=== PATIENT | female | born 1965 | race Caucasian/White ===

== ENCOUNTER 2018-06-11 22:34 | Inpatient (IN) | payer OTHER ==
[~2018-06-11] VITALS: Ht 170.2 cm; Wt 71.7 kg
[2018-06-11] MEDS ORDERED: IV RINGERS SOLUTION,LACTATED 1,000 ML IV SCH (22:40)
--- NOTE | 2018-06-11 22:40 | ED.ADGEN ---
Past History Past Medical History: UTI, Other Past Surgical History: Other Adult General Chief Complaint Chief Complaint ".. I got this really severe pain up here... where I used to get gallbladder pain.. here in this Rt. flank.. and abd.. it was so severe.. I got dizzy...".. " I know it is not my gall bladder since I got it out..." HPI HPI Patient is a 53 year old female who presents with above hx and complaints severe Rt. upper flank and abd. pain. Pt. denies any intake of bad food, travel , trauma or specific ill contacts. Patient has had previous cholecystectomy. Patient denies any problems with defecation or urination. No discoloration stools. No history of prior kidney stones. Patient rates pain as 10 out of 10 at its peak point. Nothing she could do to relieve the pain. Pt. normally follows at [facility] [facility]. Review of Systems Review of Systems Constitutional: Denies fever or chills [] Eyes: Denies change in visual acuity, redness, or eye pain [] HENT: Denies nasal congestion or sore throat [] Respiratory: Denies cough or shortness of breath [] Cardiovascular: No additional information not addressed in HPI [] GI: Complaints of right flank and abdominal pain, nausea,. Denies vomiting, bloody stools or diarrhea [] : Denies dysuria or hematuria [] Musculoskeletal: Right flank back pain. Denies joint pain [] Integument: Denies rash or skin lesions [] Neurologic: Denies headache, focal weakness or sensory changes [] Endocrine: Denies polyuria or polydipsia [] All other systems were reviewed and found to be within normal limits, except as documented in this note. Family History Family History Noncontributory Current Medications Current Medications Current Medications Medications (Trade) Dose Ordered Sig/Ar Start Time Stop Time Status Last Admin Dose Admin Famotidine (Pepcid Vial) 20 mg 1X ONCE 06/11/18 22:45 06/11/18 23:34 DC 06/12/18 00:01 20 MG Ketorolac Tromethamine (Toradol 30mg Vial) 30 mg 1X ONCE 06/11/18 23:00 06/11/18 23:34 DC 06/12/18 00:01 30 MG Lactated Ringer's 1,000 ml @ 160 mls/hr Q6H15M 06/12/18 00:15 06/12/18 01:32 160 MLS/HR Morphine Sulfate (Morphine 10mg Syringe) 10 mg QIDPRN PRN 06/12/18 00:15 Ondansetron HCl (Zofran) 4 mg PRN Q4HRS PRN 06/12/18 00:15 06/13/18 00:14 See nursing for home meds Allergies Allergies Allergies Coded Allergies Type Severity Reaction Last Updated Verified iodine Allergy Severe 06/11/18 Yes Iodine dye Physical Exam Physical Exam Constitutional: Moderately acute distress, non-toxic appearance. [] HENT: Normocephalic, atraumatic, bilateral external ears normal, oropharynx moist, no oral exudates, nose normal. [] Eyes: PERRLA, EOMI, conjunctiva normal, no discharge. [] Neck: Normal range of motion, no tenderness, supple, no stridor. [] Cardiovascular:Heart rate regular rhythm, no murmur [] Lungs & Thorax: Bilateral breath sounds equal apex on auscultation [] Abdomen: Bowel sounds decreased, soft, right flank and abdomen tenderness, no masses, no pulsatile masses. Mild generalized distention. Old surgical scars. Skin: Warm, dry, no erythema, no rash. [] Back: No tenderness, no CVA tenderness. [] Extremities: No tenderness, no cyanosis, no clubbing, ROM intact, no edema. [] No true psoas sign Neurologic: Alert and oriented X 3, normal motor function, normal sensory function, no focal deficits noted. [] Psychologic: Affect anxious, judgement normal, mood normal. [] Current Patient Data Vital Signs Vital Signs Date Time Temp Pulse Resp B/P (MAP) Pulse Ox O2 Delivery O2 Flow Rate FiO2 06/11/18 23:30 78 18 138/86 (103) 96 Room Air 06/11/18 22:43 97.9 Lab Results Laboratory Tests Test 06/11/18 23:59 Urine Collection Type Unknown Urine Color Yellow Urine Clarity Clear Urine pH 6.5 Urine Specific [place] 1.020 Urine Protein Neg (NEG-TRACE) Urine Glucose (UA) Neg mg/dL (NEG) Urine Ketones (Stick) 15 mg/dL (NEG) Urine Blood Small (NEG) Urine Nitrite Neg (NEG) Urine Bilirubin Neg (NEG) Urine Urobilinogen Dipstick 0.2 mg/dL (0.2 mg/dL) Urine Leukocyte Esterase Small (NEG) Urine RBC 1-2 /HPF (0-2) Urine WBC 1-4 /HPF (0-4) Urine Squamous Epithelial Cells Occ /LPF Urine Bacteria 0 /HPF (0-FEW) Urine Opiates Screen Neg (NEG) Urine Methadone Screen Neg (NEG) Urine Barbiturates Neg (NEG) Urine Phencyclidine Screen Neg (NEG) Urine Amphetamine/Methamphetamine Neg (NEG) Urine Benzodiazepines Screen Neg (NEG) Urine Cocaine Screen Neg (NEG) Urine Cannabinoids Screen Neg (NEG) Urine Ethyl Alcohol Neg (NEG) EKG EKG My interpretation EKG shows normal sinus rhythm at 77 bpm. No acute morphology[] Radiology/Procedures Radiology/Procedures My interpretation of acute abdomen film shows no acute cardiopulmonary findings. No free air in the diaphragm. Nonspecific bowel gas pattern. CT of abdomen shows some findings consistent with a partial small bowel obstruction. But no acute surgical processes appreciated. See formal report when available. Course & Med Decision Making Course & Med Decision Making Pertinent Labs and Imaging studies reviewed. (See chart for details) Admit to Dr. Garber- marcela eval. and tx. Serial exams and hydration. Antibiotics for UTI. [] Final Impression Final Impression 1. Abd. Pain[] 2. Partial Small Bowel Ileus 3. UTI Dragon Disclaimer Dragon Disclaimer This electronic medical record was generated, in whole or in part, using a voice recognition dictation system. LAKE FAUSTIN MD Jun 11, 2018 22:40
[2018-06-11] MEDS ORDERED: ONDANSETRON PF 4 MG/2 ML VIAL. IV ONE (22:45)
[2018-06-11] MEDS ORDERED: FAMOTIDINE 20 MG/2 ML VIAL IVP ONE (22:45)
[2018-06-11] MEDS ORDERED: KETOROLAC 30 MG/ML VIAL. IV ONE (23:00)
--- NOTE | 2018-06-11 23:48 | RAD ---
INDICATION: Right flank and abdomen pain with nausea, vomiting. Hx: Cholecystectomy COMPARISON: None. TECHNIQUE: Axial CT images obtained through the abdomen and pelvis without contrast. Limited assessment of solid organ structures and vasculature secondary to lack of intravenous contrast.. One or more of the following individualized dose reduction techniques were utilized for this examination: 1. Automated exposure control; 2. Adjustment of the mA and/or kV according to patient size; 3. Use of iterative reconstruction technique. FINDINGS: Abdominal aorta is not grossly aneurysmal. Postcholecystectomy changes. Cystic lesion within the liver. No peripancreatic fluid collection. Prominence of the biliary tree which is commonly seen postcholecystectomy. Spleen unremarkable. There is a suspected partially fat-containing lesion at the lower pole of the left kidney measuring up to 16mm. No left-sided hydronephrosis. Urinary bladder is partially distended. No right-sided hydronephrosis. No periappendiceal inflammation. There are some dilated loops of small bowel identified measuring up to about 31 mm with some more distal decompression. Small fat-containing umbilical hernia. Suspected Tarlov cyst formation. Fat-containing umbilical hernia. There is some degenerative changes of the spine. IMPRESSION: 1. There are some dilated loops of small bowel identified with more distal decompression. This can be seen with causes such as partial small bowel obstruction in the correct clinical context. 2. No hydronephrosis. 3. Fat-containing left renal lesion is suspected. Can be seen with causes such as angiomyolipoma. 4. No periappendiceal inflammation. Electronically signed by: Edward Wade MD (06/11/2018 11:44 PM) [facility]
--- NOTE | 2018-06-12 | RAD ---
Abdomen series including PA chest 06/11/2018. No free air is seen. Gas is present in the stomach and colon. There is no evidence of obstruction. No abnormal masses or gas collections are seen. A single view of the chest shows no infiltrate or effusion. Heart size and pulmonary vascularity appear normal. IMPRESSION: Nonobstructive gas pattern. Electronically signed by: Familia Katz Jr., MD (06/11/2018 11:56 PM) [facility]
[2018-06-12] MEDS ORDERED: ONDANSETRON PF 4 MG/2 ML VIAL. IV PRN (00:15)
[2018-06-12] MEDS ORDERED: MORPHINE SULFATE 10 MG/ML SYRINGE. SQ PRN (00:15)
[2018-06-12 00:25] LABS: BARBITURATES NEG (NEG); BENZODIAZEPINES NEG (NEG); CANNABINOIDS NEG (NEG); COCAINE NEG (NEG); METHADONE NEG (NEG); OPIATES NEG (NEG); PHENCYCLIDINE NEG (NEG)
[2018-06-12 00:26] LABS: BACTERIA,URINE 0 /HPF (0-FEW); BILIRUBIN,URINE NEG (NEG); CLARITY,URINE CLEAR; COLOR,URINE YELLOW; GLUCOSE,URINE NEG (NEG); NITRITE,URINE NEG (NEG); SQUAMOUS EPITHELIAL CELL,UR OCC /LPF; UROBILINOGEN,URINE 0.2 mg/dL (0.2 mg/dL)
[2018-06-12 00:27] LABS: AMPHETAMINE/METHAMPHETAMINE NEG (NEG)
[2018-06-12 00:36] LABS: BASO % 0 % (0-3); EOS # 0.1 x10^3/uL (0.0-0.7); EOS % 1 % (0-3); HEMATOCRIT 40.1 % (36.0-47.0); HEMOGLOBIN 14.3 g/dL (12.0-15.5); LYMPH # 0.6 x10^3/uL (1.0-4.8); LYMPH % 7 % (24-48); MEAN CORPUSCULAR HEMOGLOBIN 31 pg (25-35); MEAN CORPUSCULAR HGB CONC 36 g/dL (31-37); MEAN CORPUSCULAR VOLUME 87 fL (79-100); MONO # 0.6 x10^3/uL (0.0-1.1); MONO % 6 % (0-9); NEUT # 7.4 x10^3uL (1.8-7.7); NEUT % 85 % (31-73); PLATELET COUNT 266 x10^3/uL (140-400); RED BLOOD COUNT 4.62 x10^6/uL (3.50-5.40); RED CELL DISTRIBUTION WIDTH 12.9 % (11.5-14.5); WHITE BLOOD COUNT 8.7 x10^3/uL (4.0-11.0)
[2018-06-12 00:47] LABS: ALBUMIN 3.3 g/dL (3.4-5.0); CALCIUM 8.2 mg/dL (8.5-10.1); CREATININE 0.8 mg/dL (0.6-1.0); DIRECT BILIRUBIN 0.1 mg/dL (0.0-0.2); POTASSIUM 3.9 mmol/L (3.5-5.1); TOTAL BILIRUBIN 0.6 mg/dL (0.2-1.0); TOTAL PROTEIN 6.1 g/dL (6.4-8.2)
[2018-06-12] MEDS ORDERED: IV NORMAL SALINE 50ML 50 ML ONE ×2 (01:22→01:24)
[2018-06-12] MEDS ORDERED: cefTRIAXone SODIUM 1 GM VIAL IV ONE (01:23)
[2018-06-12] MEDS: IV RINGERS SOLUTION,LACTATED 1,000 ML IV SCH ×4 (01:32→19:00)
[2018-06-12 04:42] VITALS: BP 120/79
[2018-06-12] MEDS ORDERED: BUSP10TA PO (04:53)
[2018-06-12] MEDS ORDERED: LEVO125T PO (04:53)
[2018-06-12] MEDS: LACTOBACILLUS RHAMNOSUS GG 1 CAPSULE. PO SCH ×2 (07:58→20:28)
[2018-06-12] MEDS: FAMOTIDINE 20 MG/2 ML VIAL IVP SCH ×2 (07:58→20:25)
[2018-06-12] MEDS: LEVOTHYROXINE 125 MCG TABLET PO SCH (07:58)
[2018-06-12 08:21] VITALS: BP 125/83
[2018-06-12 10:40] VITALS: BP 128/83
[2018-06-12] MEDS ORDERED: ACETAMINOPHEN 325 MG TABLET PO ONE (13:50)
[2018-06-12 14:52] VITALS: BP 120/81
--- NOTE | 2018-06-12 16:04 | HP ---
ADMIT DATE: 06/12/2018 HISTORY OF PRESENT ILLNESS: The patient is a 53-year-old female patient who came to the Emergency Room complaining of recurrent bouts of nausea, vomiting, abdominal pain, mostly epigastric area that she rated as 12/10 and her symptoms started after she has eaten her lunch, started initially with the nausea when she was eating and after she arrived home, she vomited, and then developed severe abdominal pain, mostly in the epigastric area. She has vomited about 3 times before she came to the Emergency Room. She was given antiemetic and pain medication, and apparently has not had any vomiting. She felt slight nausea this morning when she woke up, but since then, she has had no further episodes of nausea and vomiting. Her pain is dull and aching. She rates about 6/10; however, she has not had any bowel movement and she has not had passed any gas. She was evaluated yesterday in the Emergency Room and her chemistry and CBC was unremarkable; however, her acute abdomen series showed that the gas is present in the stomach and colon, and there is no evidence of obstruction. No abnormal masses or gas collection are seen. Single view of the chest shows no infiltrate or effusion; heart size and pulmonary vascularity appears normal. She had a CT scan of the abdomen and pelvis without contrast, which basically showed that there are some dilated loops of small bowel identified with more distal decompression. This can be seen with causes such as partial small obstruction. In the correct critical context, she has no hydronephrosis, fat containing left renal lesion suspected, can be seen with cause such as angiomyolipoma, no periappendiceal inflammation. The patient was admitted, kept n.p.o., continued IV fluid, IV pain medication and antiemetic. She was diagnosed with UTI, although I am not really convinced that she had a UTI as her urinalysis showed there is small amount of leukocyte esterase, 1-2 rbc's, 1-4 wbc's, and no bacteria. My plan is to continue with n.p.o. status. Continue with the IV fluid. PAST MEDICAL HISTORY: Significant for hypothyroidism. PAST SURGICAL HISTORY: Significant for thyroidectomy, cholecystectomy and tonsillectomy. ALLERGIES: She is allergic to IODINE. MEDICATIONS: She is on levothyroxine 125 mcg once a day and she is also on BuSpar. FAMILY HISTORY: She has 4 sisters and one brother. Her brother is older and has had acute myocardial infarction. One of her sisters had diverticulitis. Her father is still alive at the age of 78 and generally healthy. Her mother at age of 53 because of brain tumor. SOCIAL HISTORY: She is , has 3 sons. She quit smoking about 26 years ago. She drinks alcohol occasionally. She does not use any drugs. She is a [id number]-kiix mom. She takes care of her son, who has Down syndrome. REVIEW OF SYSTEMS: The patient denied any blurring of vision, cataract, glaucoma or macular degeneration. Denied any earache, tinnitus or sensorineural deafness. Denied any nosebleeds, stuffy nose or postnasal drip. Denied any sore throat, sore tongue, toothache, hoarseness of voice or difficulty swallowing. Did complain of recurrent bouts of nausea and vomiting. Denied any diarrhea. She obviously has not had any bowel movement since yesterday. Denied any chest pain, shortness of breath, orthopnea, paroxysmal nocturnal dyspnea. Denied any cough, phlegm or hemoptysis. PHYSICAL EXAMINATION: GENERAL: On arrival to the Emergency Room, she looked well and was clearly in no apparent respiratory distress. No pallor, jaundice, cyanosis, or thyromegaly. No jugular venous distension. No lower limb edema. VITAL SIGNS: Heart rate was 76, blood pressure was 138/86, temperature was 97.9, respiratory rate was 18 and oxygen saturation was 99% on room air. HEAD, EARS, EYES, NOSE, AND THROAT: Showed normocephalic, atraumatic. NECK: Supple. HEART: Showed normal first and second heart sounds with no gallop, rub or murmur. CHEST: Clear to auscultation. No crepitation or rhonchi. ABDOMEN: Her abdomen was scaphoid, soft with tenderness mostly in the epigastric area. There is no guarding or rigidity. No organomegaly. All hernial orifices are intact. Bowel sounds were decreased. NEUROLOGIC: She is awake, alert, responding appropriately. All cranial nerves are intact. She moves extremities without difficulty. There is no obvious motor or sensory deficit. LABORATORY DATA: On admission showed a white cell count of 8700, hemoglobin 14.3, hematocrit 40, MCV 87 and platelet count of 266,000. Serum sodium was 140, potassium 3.9, chloride 109, bicarbonate 26, anion gap of 8, BUN 16, creatinine 0.8, estimated GFR was 75 mL per minute. Her glucose was 107, calcium was 8.2. Total bilirubin, AST, ALT, alkaline phosphatase were normal. Total protein 6.1, albumin 3.3. Her amylase and lipase were normal. Her white cell count was 8700, hemoglobin 14, hematocrit 40, MCV 87 and platelet count 266,000. Prothrombin time was 10.1, INR 1, aPTT was 22. Urinalysis was essentially unremarkable. Toxic screen was negative. CT scan of the abdomen and pelvis without contrast showed that the patient has dilated loops of small bowel identified with more distal decompression. This can be seen with partial small-bowel obstruction. ASSESSMENT: 1. Partial small-bowel obstruction. 2. Hypothyroidism. PLAN: To continue with n.p.o. status. Continue the IV fluid, continue antiemetic and pain medication. Once the patient has any bowel movement or stop passing gas, we will start her on a clear liquid diet and advance as tolerated. AARON DIAL MD DR: TAM/sade JOB#: [id number] / [id number]
[2018-06-12] MEDS: ACETAMINOPHEN 325 MG TABLET PO PRN (17:27)
--- NOTE | 2018-06-12 19:32 | EKG ---
[address] [address] Test Date: 2018-06-11 Test Time: 22:59:49 Pat Name: AINSLEY KLEIN Department: Room: 123 A Gender: F Supervisor Of Communications: : 1965 Requested By: LAKE FAUSTIN Order Number: [id number] Reading MD: Familia Ackerman Measurements Intervals [place] Rate: 77 P: 65 FL: 186 QRS: 53 QRSD: 84 T: 58 QT: 392 QTc: 445 Interpretive Statements SINUS RHYTHM NORMAL ECG RI6.01 Unconfirmed report No previous ECG available for comparison Electronically Signed On 06-17-2018 15:08:24 [employer] by Familia Ackerman
[2018-06-12 19:50] VITALS: BP 144/93
[2018-06-12 22:49] VITALS: BP 125/84
[2018-06-13] MEDS: ACETAMINOPHEN 325 MG TABLET PO PRN (03:27)
[2018-06-13] MEDS: IV RINGERS SOLUTION,LACTATED 1,000 ML IV SCH ×4 (05:35→20:00)
[2018-06-13] MEDS: LEVOTHYROXINE 125 MCG TABLET PO SCH (05:35)
[2018-06-13 05:41] VITALS: BP 128/80
[2018-06-13 06:39] LABS: BASO % 1 % (0-3); EOS # 0.1 x10^3/uL (0.0-0.7); EOS % 4 % (0-3); HEMATOCRIT 37.2 % (36.0-47.0); HEMOGLOBIN 13.2 g/dL (12.0-15.5); LYMPH # 0.9 x10^3/uL (1.0-4.8); LYMPH % 29 % (24-48); MEAN CORPUSCULAR HEMOGLOBIN 31 pg (25-35); MEAN CORPUSCULAR HGB CONC 35 g/dL (31-37); MEAN CORPUSCULAR VOLUME 87 fL (79-100); MONO # 0.4 x10^3/uL (0.0-1.1); MONO % 12 % (0-9); NEUT # 1.8 x10^3uL (1.8-7.7); NEUT % 55 % (31-73); PLATELET COUNT 230 x10^3/uL (140-400); RED BLOOD COUNT 4.26 x10^6/uL (3.50-5.40); RED CELL DISTRIBUTION WIDTH 12.8 % (11.5-14.5); WHITE BLOOD COUNT 3.3 x10^3/uL (4.0-11.0)
[2018-06-13 06:59] LABS: CALCIUM 8.3 mg/dL (8.5-10.1); CREATININE 0.8 mg/dL (0.6-1.0); POTASSIUM 3.7 mmol/L (3.5-5.1)
[2018-06-13] MEDS: LACTOBACILLUS RHAMNOSUS GG 1 CAPSULE. PO SCH ×2 (09:48→21:13)
[2018-06-13] MEDS: FAMOTIDINE 20 MG/2 ML VIAL IVP SCH ×2 (09:48→21:12)
[2018-06-13] MEDS: IBUPROFEN 400 MG TABLET. PO PRN ×2 (10:55→19:18)
[2018-06-13 11:21] VITALS: BP 129/81
[2018-06-13 15:05] VITALS: BP 135/85
--- NOTE | 2018-06-13 17:30 | PN ---
DATE: 06/13/2018 SUBJECTIVE: The patient is sitting up in her bed, managed to drink the whole cup of liquid diet, has had no further episodes of nausea or vomiting. She has mild abdominal discomfort. She did pass gas. Her neck pain is much improved. PHYSICAL EXAMINATION: GENERAL: When I examined her this afternoon, she looked well and was clearly in no apparent respiratory distress. No pallor, jaundice, cyanosis, or thyromegaly. No jugular venous distension. No limb edema. VITAL SIGNS: Her heart rate was 66, blood pressure was 129/81, temperature was 98, respiratory rate was 18 and oxygen saturation was 97%. HEAD, EYES, EARS, NOSE AND THROAT: Showed normocephalic, atraumatic. NECK: Supple. HEART: Showed normal first and second heart sounds. No gallop, rub or murmur. CHEST: Clear to auscultation. No crepitation or rhonchi. ABDOMEN: Scaphoid, soft, nontender. No guarding or rigidity. No organomegaly. All hernial orifice intact. Bowel sounds normal. NEUROLOGIC: She was awake, alert, responding appropriately. All cranial nerves intact. She moves extremities without difficulty. She ambulates without assistance or assistive devices. Her intake was 3800, hemoglobin was 250. LABORATORY DATA: As of this morning; her white cell count was 3300, hemoglobin 13, hematocrit 37, MCV 87 and platelet count 230,000 with normal manual differential. Her chemistry showed serum sodium of 145, potassium 3.7, chloride 107, bicarbonate 32, anion gap of 6, BUN 7, creatinine was 0.8, estimated GFR was 75 mL per minute. Her glucose was 89, calcium was 8.3. ASSESSMENT: 1. Partial small-bowel obstruction, resolving. The patient did pass gas. Her abdominal pain is much better, has no nausea or vomiting, tolerating clear liquid diet. 2. Hypothyroidism. PLAN: To advance diet as tolerated. She is able to tolerate her regular diet. Tomorrow she can be discharged home. I will reconcile all her medication. Repeat her labs again tomorrow and decide on further management accordingly. AARON DIAL MD DR: TAM/sade JOB#: [id number] / [id number]
[2018-06-13 19:51] VITALS: BP 145/90
[2018-06-13] MEDS: busPIRone 10 MG TABLET. PO SCH (21:13)
[2018-06-13 22:40] VITALS: BP 123/77
[2018-06-14] MEDS: IV RINGERS SOLUTION,LACTATED 1,000 ML IV SCH ×2 (02:15→08:57)
[2018-06-14 05:28] VITALS: BP 127/71
[2018-06-14] MEDS: LEVOTHYROXINE 125 MCG TABLET PO SCH (05:32)
[2018-06-14 07:05] LABS: ALBUMIN 2.8 g/dL (3.4-5.0); CALCIUM 8.4 mg/dL (8.5-10.1); CREATININE 0.8 mg/dL (0.6-1.0); POTASSIUM 3.7 mmol/L (3.5-5.1); TOTAL BILIRUBIN 0.4 mg/dL (0.2-1.0); TOTAL PROTEIN 5.5 g/dL (6.4-8.2)
[2018-06-14] MEDS: IBUPROFEN 400 MG TABLET. PO PRN (07:07)
[2018-06-14] MEDS: busPIRone 10 MG TABLET. PO SCH (08:57)
[2018-06-14] MEDS: FAMOTIDINE 20 MG/2 ML VIAL IVP SCH (08:57)
[2018-06-14] MEDS: LACTOBACILLUS RHAMNOSUS GG 1 CAPSULE. PO SCH (08:57)
[2018-06-14 11:03] VITALS: BP 122/77
--- NOTE | 2018-06-14 12:19 | DS ---
DATE OF DISCHARGE: 06/14/2018 HOSPITAL COURSE: The patient is a 53-year-old female patient, who came to the Emergency Room complaining of recurrent bouts of nausea, vomiting, abdominal pain. She has not had any bowel movement and nor that she pass gas for 24 hours prior to admission. Her CT scan of the abdomen showed that she has dilated loops of small bowel identified with more distal decompression consistent with partial small-bowel obstruction. The patient was initially kept n.p.o., started on IV fluid and IV antiemetic and pain medication. Yesterday, she started having passing gas and we did start her on a clear liquid diet that was advanced as tolerated. She has had no more nausea or vomiting, no abdominal pain. She had bowel movement this morning and a decision was made to discharge her home. PHYSICAL EXAMINATION: GENERAL: When I saw her this morning, she looked well and was clearly in no apparent respiratory distress. No pallor, jaundice, cyanosis or thyromegaly. No jugular venous distention. No limb edema. VITAL SIGNS: Her heart rate was 59, blood pressure was 122/77, temperature was 97.6, respiratory rate was 18 and oxygen saturation was 96%. HEAD, EYES, EARS, NOSE AND THROAT: Normocephalic, atraumatic. NECK: Supple. HEART: Showed normal first and second heart sounds with no gallop or murmur. CHEST: Clear to auscultation. No crepitation or rhonchi. ABDOMEN: Slightly distended, soft, nontender. There is no guarding or rigidity. No organomegaly. All hernial orifice intact. Bowel sounds normal. NEUROLOGIC: She is awake, alert, responding appropriately. All cranial nerves intact. EXTREMITIES: She moves extremities without difficulty. She ambulates without assistance or assistive devices. Her intake was 3800, no output was recorded. LABORATORY DATA: Her lab work this morning showed a white cell count of 3300, hemoglobin 13, hematocrit 37, MCV 87 and a platelet count of 230,000. Her serum sodium was 144, potassium 3.7, chloride 106, bicarbonate 32, anion gap of 6, BUN 5, creatinine 0.8, estimated GFR was 75 mL per minute. Her glucose was 92, calcium was 8.4. Total bilirubin, AST, ALT, alkaline phosphatase were normal. Her total protein was 5.5, albumin was 2.8. Her prothrombin time, INR and aPTT were normal. DISCHARGE MEDICATIONS: The patient was discharged home to continue on buspirone 10 mg twice a day and levothyroxine 135 mcg daily. FINAL DISCHARGE DIAGNOSES: 1. Partial small-bowel obstruction, resolved conservatively. 2. Hypothyroidism. 3. Anxiety. AARON DIAL MD DR: TAM/sade JOB#: [id number] / [id number]
== END 2018-06-14 12:00 | disposition home or self-care (01) | DRG 389 ==
LOC: ER 22:34 → 1 SOUTH 06-12 00:15
PROVIDERS: ADMIT Internal Medicine; ATTEND Internal Medicine
DX: K56.600 Partial intestinal obstruction, unspecified as to cause (principal); E44.0 Moderate protein-calorie malnutrition; E89.0 Postprocedural hypothyroidism; F41.9 Anxiety disorder, unspecified; Z82.49 Family history of ischemic heart disease and other diseases of the circulatory system; Z90.49 Acquired absence of other specified parts of digestive tract; Z87.891 Personal history of nicotine dependence
CPT/HCPCS: 36415; 74022; 74176; 80048; 80053; 80076; 80307; 81001; 82150; 82550; 83690; 84484; 85025; 85610; 85730; 87086; 93005; 96361; 96365; 96375; G0238; J0696; J1885; J2405; J3490; J7120; 99285-25